=== PATIENT | male | born 1925 | race Caucasian/White ===

== ENCOUNTER 2016-11-04 21:56 | Observation (INO) | payer OTHER ==
[~2016-11-04] VITALS: Ht 177.8 cm; Wt 84.0 kg
[~2016-11-04 21:56] MED LIST: ASPIR-LOW81 MG PO; ATORVASTATIN CA40 MG PO; Aspirin E.C. PO; CAPSAICIN57 GM TP; CRESTOR20 MG PO; DULERA 200 MCG/13 GM IH; FENOFIBRATE54 M1 PO; FLUNISOLIDE25 ML BOTH NARES; Fish Oil PO; GLIPIZIDE5 MG PO; Hydrodiuril,Oretic,E PO; LEVAQUIN750 MG PO; LEVOFLOXACIN500 MG PO; LOPRESSOR50 MG PO; Lopressor PO; NEXIUM20 MG PO; NORVASC10 MG PO; PREDNISONE20 MG PO; PROVENTIL HFA6.7 GM IH; PROVENTIL,2.5 MG/3 M IH; Pen-Vee K,Veetids PO; PriLOSEC PO; SPIRIVA1 INHALATI IH; SYMBICORT60 INHALAT IH; TRICOR48 MG PO; VASOTEC10 MG PO; VITAMIN D1000 INTUN PO; VITAMIN D31000 UNI2 PO; Vasotec PO
[2016-11-04 22:39] LABS: HEMATOCRIT 40.3 % (38.0-50.0); MCH 29.8 PG (29.0-34.0); MCHC 33.3 G/DL (30.0-36.0); MCV 89.8 FL (86-99); PLATELET COUNT 280 K/uL (156-360); RBC DIS.WIDTH-CV 12.7 % (11.8-14.6); RBC DIS.WIDTH-SD 41.4 % (39-53); RED BLOOD COUNT 4.49 M/uL (4.00-5.50); WHITE BLOOD COUNT 9.1 K/uL (4.1-10.2)
[2016-11-04 22:57] LABS: CHLORIDE 106 mEq/L (99-109); POTASSIUM 4.4 mEq/L (3.7-5.4); SODIUM 138 mEq/L (136-147)
[2016-11-04 22:59] LABS: GLUCOSE 84 mg/dL (70-99)
[2016-11-04 23:00] LABS: ANION GAP 8 MEQ/L (2-14); TROP-I INTERPRETATION NEGATIVE; TROPONIN-I < 0.01 ng/mL (0.0-0.30)
[2016-11-04 23:03] LABS: GFR ESTIMATE (CALCULATED) 44 mL/min/
[2016-11-04 23:04] LABS: UREA NITROGEN (BUN) 13 mg/dL (9-23)
[2016-11-05] MEDS ORDERED: PROVENTIL HFA6.7 GM IH (01:04)
[2016-11-05] MEDS ORDERED: ZYRTEC10 M3 PO (01:07)
[2016-11-05] MEDS ORDERED: TERBINAFINE HCL30 GM TP (01:07)
[2016-11-05] MEDS ORDERED: PROTONIX40 MG PO (01:07)
[2016-11-05] MEDS ORDERED: DESONIDE15 GM TP (01:07)
[2016-11-05] MEDS ORDERED: ENALAPRIL MALEA10 MG PO (01:08)
[2016-11-05] MEDS ORDERED: [UNRECOGNIZED DRUG - OTHER] TP (01:08)
[2016-11-05] MEDS ORDERED: NASALCROM NASAL13 ML BOTH NARES (01:08)
[2016-11-05 06:59] LABS: TROP-I INTERPRETATION NEGATIVE; TROPONIN-I < 0.01 ng/mL (0.0-0.30)
[2016-11-05 07:03] LABS: Estimated Average Glucose 151 mg/dL (70-123); HEMOGLOBIN A1c (GLYCOHEMOGLOB) 6.9 % HGB (Below 5.7)
[2016-11-05 07:12] LABS: HDL CHOLESTEROL 41 MG/DL (Desirable>=40); LDL CHOLESTEROL 47 mg/dL (Desirable<100); NON-HDL CHOLESTEROL 78 mg/dL (Desirable<160); TOTAL CHOLESTEROL 119 mg/dL (Desirable<200); TRIGLYCERIDES 154 MG/DL (Normal: <150)
[2016-11-05 08:23] LABS: POINT-OF-CARE METER ID UU13113747
[2016-11-05 11:45] LABS: POINT-OF-CARE METER ID UU13113747
[2016-11-05 13:04] LABS: TROP-I INTERPRETATION NEGATIVE; TROPONIN-I < 0.01 ng/mL (0.0-0.30)
[2016-11-05 16:49] VITALS: BP 121/71
== END 2016-11-05 16:51 | disposition home or self-care (01) ==
LOC: EME 21:56 → EDOF 11-05 01:34
PROVIDERS: Hospitalist; Physician Assistant Medical
DX: R07.9 Chest pain, unspecified (principal); R20.0 Anesthesia of skin; I12.9 Hypertensive chronic kidney disease with stage 1 through stage 4 chronic kidney disease, or unspecified chronic kidney disease; I25.10 Atherosclerotic heart disease of native coronary artery without angina pectoris; Z95.1 Presence of aortocoronary bypass graft; I25.2 Old myocardial infarction; J61 Pneumoconiosis due to asbestos and other mineral fibers; J44.9 Chronic obstructive pulmonary disease, unspecified; E11.22 Type 2 diabetes mellitus with diabetic chronic kidney disease; N18.3 Chronic kidney disease, stage 3 (moderate); E78.5 Hyperlipidemia, unspecified; R10.13 Epigastric pain; K21.9 Gastro-esophageal reflux disease without esophagitis; M19.90 Unspecified osteoarthritis, unspecified site; Z79.82 Long term (current) use of aspirin; Z79.84 Long term (current) use of oral hypoglycemic drugs; Z82.3 Family history of stroke; Z82.5 Family history of asthma and other chronic lower respiratory diseases; Z91.041 Radiographic dye allergy status; Z88.2 Allergy status to sulfonamides; Z88.5 Allergy status to narcotic agent; Z88.8 Allergy status to other drugs, medicaments and biological substances
CPT/HCPCS: 70450; 70551; 71020; 80048; 80061; 82948; 83036; 84484; 85027; 93005; 93880; 94640; 99202; 99281; 99285; G0378; G8978 GP CH; G8979 GP CH; G8980 GP CH; J1644; J1815; J2270